=== PATIENT | male | born 1950 | race Caucasian/White ===

== ENCOUNTER 2017-04-03 16:39 | Emergency (ER) | payer OTHER ==
[~2017-04-03] VITALS: Ht 170.2 cm; Wt 75.5 kg
[2017-04-03 16:42] VITALS: Ht 170.2 cm; Wt 75.5 kg
[2017-04-03] MEDS ORDERED: ACETAMINOPHEN 325 MG TAB PO ONE (19:00)
--- NOTE | 2017-04-03 19:28 | RADRPT ---
PROCEDURE: CT brain without contrast CLINICAL INDICATION: Headache TECHNIQUE: CT of the brain without contrast was performed on a multidetector CT scanner, with multi planar reformats. One or more of the following dose reduction techniques were used: Automated expos ure control, adjustment in mA and / or kV according to patient size, use of iterative reconstructive technique. CTDIvol = 45 mGy; DLP = 720 mGy-cm. COMPARISON: None available FINDINGS: No acute intracranial hemorrhage is identified. No extra-axial fluid collection is seen. There is no mass effect. No midline shift is identified. Ventricles and sulci are within normal limits for size and configuration. The density of the brain is unremarkable. Peng-white differentiation is preserved. Mild atheroscle rotic calcifications are seen at the intracranial internal carotid arteries. Osseous structures are unremarkable. Mastoid air cells and imaged paranasal sinuses grossly clear. IMPRESSION: No evidence of acute intracranial pathology. RPTAT: HESO .David Bryan MD, MD Date Time Electronically viewed and signed by .David Bryan MD, on 04/03/2017 19:28 .O/
[2017-04-03] MEDS ORDERED: FIORICET PO (19:45)
--- NOTE | 2017-04-03 19:48 | ERD ---
ER Documentation Chief Complaint Date/Time DATE: 04/03/17 TIME: 19:46 Chief Complaint HEADCAHE X 10 DAYS , NO NEURO DEFICITS HPI 66-year-old male presents with a left parietal headache for last 10 days. He denies any history of trauma. Denies any visual changes, vomiting, fevers, chest pain, shortness breath, weakness. ROS All systems reviewed and are negative except as per history of present illness. Medications Home Meds Active Scripts Acetamin/Butalbital/Caffeine* (Fioricet*) [id number] Tab, 1 TAB PO Q6H Y for PAIN, #20 TAB Prov:TIESHA MILTON MD 04/03/17 Physical Exam Vitals Vital Signs Date Time Temp Pulse Resp B/P Pulse Ox O2 Delivery O2 Flow Rate FiO2 04/03/17 16:42 98.3 72 18 128/75 96 Physical Exam Const: [], [id number]. Head: Atraumatic Eyes: Normal Conjunctiva ENT: Normal External Ears, Nose and Mouth. Neck: Full range of motion..~ No meningismus. Resp: Clear to auscultation bilaterally Cardio: Regular rate and rhythm, no murmurs Abd: Soft, non tender, non distended. Normal bowel sounds Skin: No petechiae or rashes Back: No midline or flank tenderness Ext: No cyanosis, or edema Neur: Awake and alert. Cranial nerves II through XII grossly intact. Normal gait. No cerebellar signs. Psych: Normal Mood and Affect Results 24 hrs Current Medications Medications (Trade) Dose Ordered Sig/Dmitry Route PRN Reason Start Time Stop Time Status Last Admin Dose Admin Acetaminophen (Tylenol Tab) 650 mg ONCE ONCE PO 04/03/17 19:00 04/03/17 19:01 DC 04/03/17 19:04 Procedures/MDM CT brain was read as normal by the radiologist. Patient presents left-sided headache for the last 10 days without signs or symptoms of meningitis, mass- effect, bleeding, fracture, neurologic deficit. There is no pulsatile lesions to suggest temporal arteritis. Is given Tylenol here and will be treated with Fioricet at home and further observation. The patient was stable with no new complaints during the ER course. Clinically, there is no current evidence to suggest meningitis, sepsis, acute abdomen, pneumonia, acute coronary syndrome, pulmonary embolism, or any other emergent condition appearing to require further evaluation or hospitalization. The patient should certainly return for any new or worsening symptoms per the aftercare instructions. They should otherwise follow-up with her primary care doctor for reevaluation this week. Departure Diagnosis: Primary Impression: Headache Headache type: unspecified Headache chronicity pattern: unspecified pattern Intractability: not intractable Qualified Code: R51 - Nonintractable headache, unspecified chronicity pattern, unspecified headache type Condition: Stable Patient Instructions: Headache, Unspecified Additional Instructions: Examines normal hoy. Cheque otro vez con carson doctor primario en el proximo wang or regresa para mas o nueva simptomas. TIESHA MILTON MD Apr 03, 2017 19:48
== END 2017-04-03 19:59 | disposition home or self-care (01) ==
LOC: FTE 16:39
DX: R51 Headache (principal)
CPT/HCPCS: 70450; Z7502; Z7610